=== PATIENT | male | born 1995 | race Caucasian/White ===

== ENCOUNTER 2021-10-02 13:52 | Emergency (ER) | payer SELFPAY ==
[2021-10-02] MEDS ORDERED: Sodium Chloride 0.9% 2.5 ML Syringe FLUSH PRN (13:55)
[2021-10-02] MEDS ORDERED: Sodium Chloride 0.9% 10 ML Syringe FLUSH PRN (13:55)
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
--- NOTE | 2021-10-02 14:24 | CR ---
INDICATION: Stroke. TECHNIQUE: Chest 1 view. COMPARISON: None. FINDINGS: No focal consolidation, pleural effusion, or pneumothorax. Normal heart size and pulmonary vascularity. The bones are unremarkable. IMPRESSION: No acute cardiopulmonary findings. Dictated by Hillary Stevens MD @ 10/02/2021 2:23:46 PM (Electronically Signed)
--- NOTE | 2021-10-02 14:32 | CT ---
INDICATION: Stroke. TECHNIQUE: CT head without contrast. COMPARISON: None. FINDINGS: CSF spaces: Within normal limits for age. Brain parenchyma and extra-axial spaces: The woo-white differentiation is normal. No sign of mass, hemorrhage, or midline shift. No extra-axial fluid collection. Skull base and calvarium: The visualized paranasal sinuses and mastoid air cells demonstrate no acute or significant findings. The visualized orbits are grossly unremarkable. No skull fractures. IMPRESSION: Unremarkable noncontrast head CT. No sign of CVA or intracranial hemorrhage. Please note that all CT scans at this facility use dose modulation, iterative reconstruction, and/or weight-based dosing when appropriate to reduce radiation dose to as low as reasonably achievable. Dictated by Caleb Gunter MD @ 10/02/2021 2:31:56 PM (Electronically Signed)
--- NOTE | 2021-10-02 14:43 | CT ---
DATE: 10/02/2021. CLINICAL HISTORY: Acute neurological deficit. TECHNIQUE: Standard helical CT image acquisition through the neck was performed after intravenous contrast bolus enhancement. Multiplanar reconstructed images were performed and interpreted. COMPARISON: None available. FINDINGS: The origins of the great vessels from the aortic arch are patent. The origins of the right and left vertebral arteries are patent. The common carotid arteries are patent. No significant luminal stenoses of the proximal internal carotid arteries by NASCET criteria. The more distal cervical segments of the internal carotid arteries are patent. The cervical segments of the vertebral arteries are patent. The intracranial segments of the vertebral arteries are patent. The visualized intracranial vasculature is within normal limits. The visualized lung apices are unremarkable. The thyroid gland is unremarkable. The cervical spine is unremarkable. IMPRESSION: Patent cervical arterial vasculature without hemodynamically significant luminal stenosis. Please note that all CT scans at this facility use dose modulation, iterative reconstruction, and/or weight-based dosing when appropriate to reduce radiation dose to as low as reasonably achievable. Dictated by Carlos Roy MD @ 10/02/2021 2:41:01 PM (Electronically Signed)
--- NOTE | 2021-10-02 14:45 | CT ---
DATE: 10/02/2021. CLINICAL HISTORY: Acute neurological deficit. TECHNIQUE: Standard helical CT image acquisition through the head following the administration of intravenous contrast was performed. Multiplanar reconstructed images performed on a separate workstation. COMPARISON: None available. FINDINGS: The petrous, cavernous, and supraclinoid segments of the internal carotid arteries are patent. The anterior and middle cerebral arteries are patent. The anterior communicating artery is visualized and is within normal limits. The intracranial vertebral arteries, basilar trunk, and posterior cerebral arteries are patent. The major dural venous sinuses and deep venous system are patent. IMPRESSION: No intracranial proximal large vessel occlusion or flow limiting luminal stenosis. Please note that all CT scans at this facility use dose modulation, iterative reconstruction, and/or weight-based dosing when appropriate to reduce radiation dose to as low as reasonably achievable. Dictated by Carlos Roy MD @ 10/02/2021 2:43:44 PM (Electronically Signed)
[2021-10-02] MEDS ORDERED: Iopamidol 755 MG/ML 500 ML Multipack Bottle IVPUSH STA (15:28)
--- NOTE | 2021-10-02 17:45 | PCM.EKG ---
#1 Interpretation EKG Interpretation Comments: EKG sinus rhythm done at 10/02/2021 at 3:16 PM rhythm sinus rhythm heart rate 86 MA [address] [place] [address] and T impression essentially normal EKG
== END 2021-10-02 16:00 | disposition home or self-care (01) ==
LOC: MW.ED 13:52
DX: G45.9 Transient cerebral ischemic attack, unspecified (principal); Z72.0 Tobacco use
CPT/HCPCS: 70450; 70496; 70498; 71045; 99285; Q9967

== ENCOUNTER 2024-06-19 14:27 | Emergency (ER) | payer SELFPAY ==
[2024-06-19] MEDS ORDERED: Sodium Chloride 0.9% 2.5 ML Syringe FLUSH PRN (14:50)
[2024-06-19] MEDS ORDERED: Sodium Chloride 0.9% 20 ML SDV IV PRN (14:50)
[2024-06-19] MEDS ORDERED: Sodium Chloride 0.9% 10 ML Syringe FLUSH PRN (14:50)
[2024-06-19 16:51] LABS: ALBUMIN 3.9 g/dL (3.4-5.0); BILIRUBIN TOTAL 0.6 mg/dL (0.2-1.0); CALCIUM 8.8 mg/dL (8.5-10.1); CARBON DIOXIDE,CO2 23.2 mmol/L (21.0-32.0); EST CRCL DRUG DOSING (CG) 136.13 mL/min; POTASSIUM,K 4.1 mmol/L (3.5-5.1); PROTEIN TOTAL,TP 7.7 g/dL (6.4-8.2)
[2024-06-19 17:23] LABS: BASOPHILS ABSOLUTE AUTO 0.02 K/uL (0.00-0.20); BASOPHILS PERCENT AUTO 0.4 % (0.0-1.0); EOSINOPHILS ABSOLUTE AUTO 0.19 K/uL (0.00-0.45); EOSINOPHILS PERCENT AUTO 3.6 % (0.0-6.0); HEMATOCRIT 43.6 % (42.0-52.0); HEMOGLOBIN 15.1 g/dL (14.0-18.0); IMMATURE GRAN ABSOLUTE AUTO 0.01 K/uL (0.00-0.05); IMMATURE GRAN PERCENT AUTO 0.2 % (0.0-0.4); LYMPHOCYTES ABSOLUTE AUTO 1.91 K/uL (1.00-4.80); LYMPHOCYTES PERCENT AUTO 36.5 % (24.0-44.0); MEAN CORPUSCULAR HEMOGLOBIN 28.4 pg (28.0-32.0); MEAN CORPUSCULAR HGB CONC 34.6 g/dL (32.0-36.0); MEAN PLATELET VOLUME 8.9 fL (9.4-12.4); MONOCYTES ABSOLUTE AUTO 0.33 K/uL (0.00-0.80); MONOCYTES PERCENT AUTO 6.3 % (0.0-8.0); NEUTROPHILS ABSOLUTE AUTO 2.77 K/uL (1.80-7.70); PLATELET COUNT,PLT 223 K/uL (150-400); RED BLOOD CELL COUNT 5.32 M/uL (4.52-5.90); WHITE BLOOD CELL COUNT,WBC 5.23 K/uL (3.9-11.3)
== END 2024-06-19 19:11 | disposition home or self-care (01) ==
LOC: MW.ED 14:27
DX: R07.1 Chest pain on breathing (principal); Z90.49 Acquired absence of other specified parts of digestive tract
CPT/HCPCS: 36415; 71045; 71045-26; 80053; 84484; 85025; 93005; 93010; 99285